=== PATIENT | female | born 1980 | race Two or more races ===

== ENCOUNTER 2018-05-07 11:01 | Emergency (ER) | payer OTHER ==
[2018-05-07 11:33] LABS: URINE BLOOD (Dip) POC Negative (NEGATIVE); URINE GLUCOSE (Dip) POC Negative (NEGATIVE); URINE KETONES (Dip) POC Negative (NEGATIVE); URINE LEUKOCYTE EST (Dip) POC 1+ (NEGATIVE); URINE NITRITE (Dip) POC Negative (NEGATIVE); URINE TOTAL PROTEIN POC Negative (NEGATIVE)
== END 2018-05-07 12:58 | disposition home or self-care (01) ==
LOC: FTE 11:01
DX: O26.892 Other specified pregnancy related conditions, second trimester (principal); R10.2 Pelvic and perineal pain; Z3A.14 14 weeks gestation of pregnancy
CPT/HCPCS: 76815; 81003; 81025; 99284-25

== ENCOUNTER 2018-11-01 18:17 | Inpatient (IN) | payer OTHER ==
[2018-11-01 19:51] LABS: ADD MAN DIFF? NO
[2018-11-01 19:54] LABS: WHITE BLOOD COUNT 10.7 10^3/ul (4.8-10.8)
[2018-11-01 19:54] LABS: BASOPHILS % 0.4 % (0.0-2.0); EOSINOPHILS % 0.4 % (0.0-7.0); HEMATOCRIT 42.3 % (37.0-47.0); HEMOGLOBIN 14.1 g/dl (12.0-16.0); LYMPHOCYTES # 1.9 10^3/ul (0.8-2.9); LYMPHOCYTES % 17.7 % (15.0-51.0); MEAN CORPUSCULAR HEMOGLOBIN 28.5 pg (29.0-33.0); MEAN CORPUSCULAR HGB CONC 33.3 g/dl (32.0-37.0); MEAN CORPUSCULAR VOLUME 85.6 fl (82.0-101.0); MONOCYTE # 0.9 10^3/ul (0.3-0.9); MONOCYTES % 8.5 % (0.0-11.0); NEUTROPHIL # 7.7 10^3/ul (1.6-7.5); NEUTROPHILS % 72.3 % (39.0-77.0); PLATELET COUNT 182 10^3/UL (140-415); RED BLOOD COUNT 4.94 10^6/ul (4.20-5.40); RED CELL DISTRIBUTION WIDTH 13.2 % (11.5-14.5)
[2018-11-01] MEDS: LACTATED RINGER'S 1,000 ML IV ×2 (19:56→20:33)
[2018-11-01] MEDS ORDERED: METHYLERGONOVINE 0.2 MG INJ IM ×2 (20:00→23:00)
[2018-11-01] MEDS ORDERED: CARBOPROST 250 MCG INJ IM ×2 (20:00→23:00)
[2018-11-01] MEDS ORDERED: OXYTOCIN 30 UNITS/LR 500 ML IV ×3 (20:00→23:00)
[2018-11-01] MEDS ORDERED: MISOPROSTOL 200 MCG TAB PR ×2 (20:00→23:00)
[2018-11-01] MEDS ORDERED: CEFAZOLIN 2 GM/50 ML (PMX) 50 ML IVPB (20:00)
[2018-11-01 20:14] LABS: INR 0.85; PARTIAL THROMBOPLASTIN TIME 24.6 Sec (23.0-35.0); PROTIME 11.7 Sec (11.9-14.9); PT RATIO 0.9
[2018-11-01 20:52] LABS: HEPATITIS B SURFACE ANTIGEN NEGATIVE (NEGATIVE)
[2018-11-01] MEDS ORDERED: KETOROLAC 30 MG INJ IV (22:30)
[2018-11-01] MEDS ORDERED: ZOLPIDEM 5 MG TAB PO (22:30)
[2018-11-01] MEDS ORDERED: HYDROmorphONE 0.5 MG/0.5 ML SYG IV ×2 (22:30)
[2018-11-01] MEDS ORDERED: NALOXONE (0.4 MG/ML) INJ IV (22:30)
[2018-11-01] MEDS ORDERED: DIPHENHYDRAMINE 50 MG INJ IV (22:30)
[2018-11-01] MEDS: OXYTOCIN 30 UNITS/LR 500 ML IV (22:58)
[2018-11-01] MEDS ORDERED: NACL 0.9% 3 ML SYG IV (23:00)
[2018-11-02] MEDS: ONDANSETRON 4 MG INJ IV (01:28)
[2018-11-02] MEDS: OXYTOCIN 30 UNITS/LR 500 ML IV (06:16)
[2018-11-02 08:29] LABS: ADD MAN DIFF? NO
[2018-11-02 08:37] LABS: BASOPHIL # 0.1 10^3/ul (0.0-0.1); BASOPHILS % 0.3 % (0.0-2.0); HEMATOCRIT 39.6 % (37.0-47.0); HEMOGLOBIN 13.2 g/dl (12.0-16.0); LYMPHOCYTES # 1.6 10^3/ul (0.8-2.9); LYMPHOCYTES % 9.4 % (15.0-51.0); MEAN CORPUSCULAR HEMOGLOBIN 28.8 pg (29.0-33.0); MEAN CORPUSCULAR HGB CONC 33.3 g/dl (32.0-37.0); MEAN CORPUSCULAR VOLUME 86.5 fl (82.0-101.0); MEAN PLATELET VOLUME 12.5 fl (7.4-10.4); MONOCYTE # 1.3 10^3/ul (0.3-0.9); MONOCYTES % 7.7 % (0.0-11.0); NEUTROPHIL # 14.2 10^3/ul (1.6-7.5); PLATELET COUNT 167 10^3/UL (140-415); RED BLOOD COUNT 4.58 10^6/ul (4.20-5.40); RED CELL DISTRIBUTION WIDTH 13.1 % (11.5-14.5)
[2018-11-02 08:37] LABS: WHITE BLOOD COUNT 17.3 10^3/ul (4.8-10.8)
[2018-11-02 14:56] LABS: RAPID PLASMA REAGIN NONREACTIVE (NR)
[2018-11-02] MEDS: LACTATED RINGER'S 1,000 ML IV ×2 (15:18→19:46)
[2018-11-02] MEDS: IBUPROFEN 800 MG TAB PO (22:17)
[2018-11-03] MEDS: LACTATED RINGER'S 1,000 ML IV (03:46)
[2018-11-03] MEDS: IBUPROFEN 800 MG TAB PO ×3 (06:51→22:29)
[2018-11-04] MEDS: IBUPROFEN 800 MG TAB PO ×2 (06:02→13:37)
[2018-11-04 09:44] LABS: ADD MAN DIFF? NO
[2018-11-04 09:57] LABS: WHITE BLOOD COUNT 10.6 10^3/ul (4.8-10.8)
[2018-11-04 09:57] LABS: BASOPHIL # 0.1 10^3/ul (0.0-0.1); BASOPHILS % 0.5 % (0.0-2.0); EOSINOPHILS # 0.4 10^3/ul (0.0-0.5); EOSINOPHILS % 3.6 % (0.0-7.0); HEMATOCRIT 39.5 % (37.0-47.0); HEMOGLOBIN 12.7 g/dl (12.0-16.0); LYMPHOCYTES # 1.8 10^3/ul (0.8-2.9); LYMPHOCYTES % 16.7 % (15.0-51.0); MEAN CORPUSCULAR HEMOGLOBIN 27.8 pg (29.0-33.0); MEAN CORPUSCULAR HGB CONC 32.2 g/dl (32.0-37.0); MEAN CORPUSCULAR VOLUME 86.4 fl (82.0-101.0); MEAN PLATELET VOLUME 10.8 fl (7.4-10.4); MONOCYTE # 0.7 10^3/ul (0.3-0.9); MONOCYTES % 6.6 % (0.0-11.0); NEUTROPHIL # 7.6 10^3/ul (1.6-7.5); NEUTROPHILS % 71.2 % (39.0-77.0); PLATELET COUNT 204 10^3/UL (140-415); RED BLOOD COUNT 4.57 10^6/ul (4.20-5.40); RED CELL DISTRIBUTION WIDTH 13.4 % (11.5-14.5)
== END 2018-11-04 14:47 | disposition home or self-care (01) | DRG 788 ==
LOC: OBT 18:17 → PP1 11-02 01:40 → L-D 18:20
PROVIDERS: Specialist
PROC: 10D00Z1 Extraction of Products of Conception, Low, Open Approach (ICD-10-PCS; principal; 2018-11-01)
DX: O48.0 Post-term pregnancy (principal); Z3A.40 40 weeks gestation of pregnancy; Z37.0 Single live birth
CPT/HCPCS: 85025; 85610; 85730; 86592; 86850; 86900; 86901; 87340; 99464

== ENCOUNTER 2018-12-23 16:24 | Emergency (ER) | payer OTHER | END 2018-12-23 17:23 | disposition home or self-care (01) | LOC: E/R 17:23 | DX: Z48.01 Encounter for change or removal of surgical wound dressing (principal) | CPT/HCPCS: 99283 ==